=== PATIENT | female | born 1955 | race Caucasian/White ===

== ENCOUNTER 2018-06-23 13:43 | Emergency (ER) | payer OTHER | END 2018-06-23 15:22 | disposition home or self-care (01) | LOC: FTE 13:43 | DX: R42 Dizziness and giddiness (principal); I10 Essential (primary) hypertension | CPT/HCPCS: 70450; 99284-25 ==

== ENCOUNTER 2019-04-25 13:59 | Emergency (ER) | payer OTHER | END 2019-04-25 15:04 | disposition home or self-care (01) | LOC: FTE 15:04 | DX: H66.91 Otitis media, unspecified, right ear (principal); I10 Essential (primary) hypertension | CPT/HCPCS: 99283; Z7502 ==